=== PATIENT | female | born 1990 ===

== ENCOUNTER → 2020-03-28 10:42 | Outpatient (BNVA) | payer OTHER, SELFPAY | PROVIDERS: Visit Provider Nurse Practitioner | DX: J02.0 Streptococcal pharyngitis (principal) | CPT/HCPCS: 87880 ==

== ENCOUNTER 2020-04-23 08:06 | Outpatient (CLI) | payer OTHER, SELFPAY ==
--- NOTE | 2020-04-23 08:11 | US_ITS ---
WS: [id number] ULTRASOUND PELVIS TECHNIQUE: Transvaginal. CLINICAL INFORMATION: INFERTILITY COUNSELING LMP: 04/20/20 : No. COMPARISON: None. FINDINGS: Uterus Orientation: Anteverted. Size: 7.8 x 3.2 x 4.6 cm Masses: None. Cervix: Small amount of fluid in the cervical canal. Endometrium: Normal. Endometrium thickness: 4 mm. Adnexa: Normal. Right ovary size: 3.5 x 3.5 x 2.7 cm. Left ovary size: 4.6 x 2.2 x 4.3 cm. Free fluid: Small amount of free fluid Other findings: None. US/US transvaginal [id number] IMPRESSION: 1. Normal uterus and endometrium. Endometrium measures 4 mm. 2. Both ovaries are normal in appearance. Normal adnexa. 3. Small amount of free fluid seen in the cul-de-sac. 4. Small amount of fluid in the cervix.
== END 2020-04-23 08:07 | disposition home or self-care (01) ==
LOC: RAD 08:10
PROVIDERS: Visit Provider Family Medicine
DX: Z31.69 Encounter for other general counseling and advice on procreation (principal)
CPT/HCPCS: 76830

== ENCOUNTER → 2020-06-10 14:46 | Outpatient (BNVA) | payer OTHER, SELFPAY | PROVIDERS: Visit Provider Nurse Practitioner | DX: M54.9 Dorsalgia, unspecified (principal); N39.0 Urinary tract infection, site not specified | CPT/HCPCS: 81000 ==

== ENCOUNTER → 2022-04-10 09:23 | Outpatient (BNVA) | payer OTHER, SELFPAY | PROVIDERS: Visit Provider Family Medicine Adult Medicine | DX: N39.0 Urinary tract infection, site not specified (principal) | CPT/HCPCS: 81000 ==